=== PATIENT | male | born 1990 | race Caucasian/White ===

== ENCOUNTER → 2016-10-21 | Outpatient (CLI) | payer BC ==
[2016-10-21 11:51] LABS: DAYS OF ABSTINENCE 3; METHOD OF COLLECTION MASTURBATION; SEMEN COLOR GRAY OR GRAY-WHITE (GRY/GRYWHTE); SEMEN TIME OF COLLECTION 825; TYPE OF SPECIMEN CONTAINER STERILE CUP
[2016-10-21 11:52] LABS: SPERM VIABILITY STAIN NOT INDICATED % (>58%)
== END | disposition home or self-care (01) ==
LOC: C.LABSPEC 09:19
PROVIDERS: ATTEND Obstetrics & Gynecology
DX: Z31.41 Encounter for fertility testing (principal)

== ENCOUNTER 2022-04-14 13:45 | Inpatient (IN) ==
[2022-04-14] MEDS ORDERED: ONDANSETRON INJ 2 MG/ML 2 ML VIAL IV STA (14:22)
[2022-04-14] MEDS ORDERED: SODIUM CHLORIDE 0.9% 1000ML 1,000 ML IV ONE (16:38)
--- NOTE | 2022-04-14 16:40 | Emergency Department Note ---
Impression & Plan Alcohol withdrawal ED Provider Note HISTORY OF PRESENT ILLNESS: Patient is a 31-year-old female presenting with nausea, vomiting and tremulousness. Patient reports he is a chronic alcoholic and drinks 0.5-1 fifth of vodka a day. Reports his last drink was yesterday morning. He states that the last 24 hours, he has been very nauseous and has had multiple episodes of vomiting. He presented to the emergency department today because he felt very lightheaded like he was going to pass out and was very shaky. She had states he has been drinking this amount of vodka for years, but does report a stent after few months of sobriety months ago. Denies any history of seizures with prior alcohol withdrawal. Denies any chest pain or shortness of breath. Patient denies any other recreational drug use. Reports that he vapes. ROS: Constitutional: No fever, chills, or weakness +tremulousness Skin: No rash or diaphoresis HENT: No headaches or congestion Eyes: No vision changes Cardio: No chest pain, palpitations or leg swelling Respiratory: No cough, wheezing or shortness of breath GI: No diarrhea, constipation +nausea; +vomiting : No dysuria, polyuria MSK: No joint or back pain Neuro: No loss of sensation, confusion, focal deficits, numbness, tingling Psychiatric: No mood changes PHYSICAL EXAM: Constitutional: Patient appears in no acute distress. HENT: Head: Normocephalic and atraumatic. Eyes: EOMI, PERRL Mouth/Throat: Mucous membranes moist. Neck: Trachea midline. Neck supple. Cardiovascular: RRR, No murmurs, rubs or gallops. Intact distal pulses. Pulmonary/Chest: No respiratory distress. Breath sounds clear and equal bilaterally. No wheezes or rales. No chest wall tenderness to palpation. Abdominal: BS +. Abdomen soft, no tenderness, rebound or guarding. Back: No midline spinal tenderness, no paraspinal tenderness, no CVA tenderness. Musculoskeletal: No edema, tenderness or deformity noted. Slight tremors to bilateral hands. Skin: Warm and dry. No rash, erythema, pallor or cyanosis Psychiatric: Appropriate mood and affect for situation. Neurological: Alert and keenly responsive. CN II-XII grossly intact, moving all extremities equally and fully. MDM: - Vitals signs showed tachycardia on arrival. - Laboratory workup grossly unremarkable. - Patient quite tremulous on exam today. He is around 32 hours post last drink. - Hospitlaist Dr. Beard consulted for admission. - Patient admitted to [facility]ist service for further evaluation and management. ASSESSMENT AND PLAN: Diagnosis: alcohol withdrawal Plan: admit Past Med/Surg History Medical History (Updated 04/14/22 @ 19:19 by Janay Romano MD) Anxiety and depression Fatty liver GERD (gastroesophageal reflux disease) Surgical History (Updated 08/05/21 @ 10:01 by Margaret Reid DO) H/O umbilical hernia repair S/P wisdom tooth extraction Family History (Updated 08/05/21 @ 10:02 by Margaret Reid DO) Grandmother (Maternal) Diabetes Hypertension Father No problems noted. Mother No problems noted. Denies family history of Ovarian cancer Prostate cancer Myocardial infarction Breast cancer Colorectal cancer Social History (Updated 08/05/21 @ 10:03 by Margaret Reid DO) Smoking Status: Never smoker Tobacco Type: E-cigarettes / Vaping Age Started Using Tobacco: 16; Hx Alcohol Use: Yes Alcohol type: beer Alcohol Intake Frequency: 2-3 x/Week Alcohol Intake Frequency Comment: Weekends Hx Substance Use: No Preferred Language: Croatian Communication Ability: Effective Visual Impairment: Partially Limited Hearing Ability: Normal Or Nurse Manager Required: No Beliefs That Will Affect Care: None marital status: Current Living Situation: Spouse Current Living Situation Comment: and 2 children current occupational status: employed current occupation: [employer]- Works third shift How many Children do You have: 2 Feels Safe at Home: Yes Childhood Exposure to Second-Hand Smoke: Yes Diet Comment: does not follow a diet Dental Care, Regularly: Yes Physical Activity Frequency: 1-2 Times per Week Physical Activity Frequency Comment: Walks at work; walks at home during the summer Seatbelt Use: always Sunscreen Use: Yes Assistive Devices: None Allergies Allergies Allergy/AdvReac Type Severity Reaction Status Date / Time No Known Allergies Allergy Mild NONE Unverified 04/14/22 19:01 Home Meds Previous Rx's Medication Instructions Recorded escitalopram oxalate 10 mg tablet 10 mg PO DAILY #90 tabs 04/11/22 (Lexapro) Results & Data (ED) Vital Signs Vital Signs - 24 hr 04/14/22 14:17 04/14/22 16:09 04/14/22 18:36 Temperature 36.6 C 36.6 C Temperature Source Temporal Artery Scan Oral Pulse Rate 111 H Pulse Rate [Right Finger] 92 H 64 Respiratory Rate 20 20 23 Respiratory Effort / Characteristics Non-Labored Non-Labored Respiratory Depth Normal Normal Blood Pressure 148/87 H Blood Pressure [Right Arm] 167/92 H 136/105 H Blood Pressure Mean 107 Blood Pressure Mean [Right Arm] 117 115 Pulse Oximetry 99 94 97 Oxygen Delivery Method Room Air Room Air Room Air Sepsis Recent Fever Within 48 Hours No Sepsis New/Unexplained Change in Mental Status N/A Sepsis Action Taken by Nursing No Action Required Laboratory Data Result diagrams: 04/14/22 16:12 04/14/22 16:12 Lab Results 04/14/22 04/14/22 04/14/22 Range/Units 16:12 16:12 17:23 WBC 6.45 (4.8-10.8) K/ul RBC 4.87 (4.63-6.08) M/uL Hgb 14.9 (14.0-18.0) g/dl Hct 43.5 (40.1-51.0) % MCV 89.3 (80.0-100.0) fL MCH 30.6 (25.0-34.0) pg MCHC 34.3 (32.0-36.0) g/dL RDW Std Deviation 43.6 (36.4-46.3) fL RDW Coeff of Angela 13.3 (11.5-14.5) % Plt Count 157 (130-400) K/uL MPV 9.2 L (9.4-12.4) fL Immature Gran % (Auto) 0.2 % Neut % (Auto) 86.9 % Lymph % (Auto) 5.0 % Norton % (Auto) 6.7 % Eos % (Auto) 0.0 % Baso % (Auto) 1.2 % Neut # (Auto) 5.61 (1.4-6.5) K/uL Lymph # (Auto) 0.32 L (1.2-3.4) K/uL Norton # (Auto) 0.43 (0.24-0.82) K/uL Eos # (Auto) 0.00 (0-0.50) K/uL Baso # (Auto) 0.08 (0-0.2) K/uL Immature Gran # (Auto) 0.01 (0.00-0.02) K/uL Sodium 138 (136-145) mmol/L Potassium 4.2 (3.5-5.1) mmol/L Chloride 95 L (98-107) mmol/L Carbon Dioxide 24 (21-32) mmol/L Anion Gap 19 H (3-11) BUN 11 (6-23) mg/dl Creatinine 0.85 (0.6-1.4) mg/dl Est Cr Clr Drug Dosing 124.3 ml/min Est GFR ( Amer) 134.6 ml/min Est GFR (Non-Af Amer) 116.1 ml/min BUN/Creatinine Ratio 12.9 (10-20) Glucose 120 H (70-99(Fasting)) mg/dl Calcium 9.8 (8.5-10.1) mg/dl Total Bilirubin 1.3 H (0.2-1.0) mg/dl AST 219 H (13-39) U/L ALT 168 H (7-52) U/L Alkaline Phosphatase 78 (34-104) U/L Total Protein 9.3 H (6.0-8.3) gm/dl Albumin 5.3 H (3.4-5.0) gm/dl Globulin 4.0 (2.5-4.0) gm/dl Albumin/Globulin Ratio 1.3 (0.9-2) Ethyl Alcohol mg/dL < 10.0 (<10.0) mg/dl Administered Medications Discontinued Medications Sodium Chloride (Nss 1000ml) 1,000 mls @ 999 mls/hr IV .Q1H1M ONE Stop: 04/14/22 17:38 Last Infusion: 04/14/22 18:01 Dose: 0 mls/hr Documented By: Admin: 04/14/22 16:57 Dose: 999 mls/hr Documented By: KATIANA Lorazepam (Lorazepam 0.5 Mg Tab) 0.5 mg PO NOW STA Stop: 04/14/22 18:09 Last Admin: 04/14/22 18:13 Dose: 0.5 mg Documented By: KATIANA Ondansetron HCl (Ondansetron Inj 2 Mg/Ml 2 Ml Vial) 4 mg IV NOW STA Stop: 04/14/22 14:23 Last Admin: 04/14/22 16:07 Dose: 4 mg Documented By: NRB Discharge Plan Visit Data Chief Complaint: Alcohol Withdrawal Stated Complaint: MEDICINE WITHDRAWL ED Provider: Janay Romano Discharge Problem: Alcohol withdrawal Patient Disposition: Admitted As Inpatient Forms Stand Alone Forms: [facility], Suicide Prevention Resources Prescriptions Prescriptions: No Action escitalopram oxalate [Lexapro] 10 mg tablet 10 mg PO DAILY Qty: 90 3RF Referrals Referrals: Margaret Reid DO [Primary Care Provider] -
[2022-04-14 16:44] LABS: Basophils # (auto) 0.08 K/uL (0-0.2); Basophils % (auto) 1.2 %; Hematocrit (blood only) 43.5 % (40.1-51.0); Hemoglobin 14.9 g/dl (14.0-18.0); Immature Granulocytes # (auto) 0.01 K/uL (0.00-0.02); Immature Granulocytes % (auto) 0.2 %; Lymphocytes # (auto) 0.32 K/uL (1.2-3.4); Mean Corpuscular Hemoglobin 30.6 pg (25.0-34.0); Mean Corpuscular Hgb Conc 34.3 g/dL (32.0-36.0); Mean Corpuscular Volume 89.3 fL (80.0-100.0); Mean Platelet Volume 9.2 fL (9.4-12.4); Monocytes # (auto) 0.43 K/uL (0.24-0.82); Monocytes % (auto) 6.7 %; Neutrophils # (auto) 5.61 K/uL (1.4-6.5); Neutrophils % (auto) 86.9 %; Platelet Count 157 K/uL (130-400); RDW Coefficient of Variation 13.3 % (11.5-14.5); RDW Standard Deviation 43.6 fL (36.4-46.3); Red Blood Count 4.87 M/uL (4.63-6.08); White Blood Count 6.45 K/ul (4.8-10.8)
[2022-04-14 17:36] LABS: Albumin Globulin Ratio 1.3 (0.9-2); Albumin Level 5.3 gm/dl (3.4-5.0); BUN Creatinine Ratio 12.9 (10-20); Bilirubin,Total 1.3 mg/dl (0.2-1.0); Calcium 9.8 mg/dl (8.5-10.1); Creatinine Clr Calc Pharmacy 124.3 ml/min; Est GFR (African American) 134.6 ml/min; Est GFR (Non-African American) 116.1 ml/min; Potassium 4.2 mmol/L (3.5-5.1); Total Protein 9.3 gm/dl (6.0-8.3)
[2022-04-14] MEDS ORDERED: LORazepam 0.5 MG TAB PO STA (18:08)
--- NOTE | 2022-04-14 20:15 | History & Physical Report ---
Date of Service April 14, 2022 Assessment & Plan (1) Alcohol withdrawal: Plan: Alcohol withdrawal/alcoholism- Last intake of 1 pint of vodka, his usual daily intake, was 1 day ago. Admit to medical telemetry AWSS protocol Start gabapentin seizure protocol Start lorazepam escalating dose oral protocol Thiamine 100 mg p.o. every morning Folic acid 1 mg p.o. every morning NSS + KCl 20 mEq at 100 mils per hour Zofran 4 mg IV every 6 hours as needed Famotidine 20 mg IV every 12 hours (2) Alcoholism: (3) Anxiety and depression: Plan: Resume Lexapro 10 mg daily, with first dose this evening (4) Fatty liver: Plan: Total bilirubin 1.3, AST 219, ALT 168 Follow serially (5) GERD (gastroesophageal reflux disease): Plan: Famotidine IV as noted above History of Present Illness Chief Complaint: The patient presents to the emergency department with concerns regarding alcohol withdrawal as he has been trying to quit his alcohol dependency. His last alcohol was 24 hours ago, and he is noting worsening tremors. He reports drinking half 1/5-5th of vodka daily for the past several years. He has no history of alcohol withdrawal seizures or DTs. He denies any intravenous drug use, but he does vape. Primary Care Provider: Margaret Reid DO The patient is a 31-year-old male with a past medical history of alcoholism, anxiety and depression, fatty liver, and GERD.He presents to the emergency department with his present, with concerns regarding alcohol withdrawal.He has been without his Lexapro 10 mg daily prescription for a few weeks, but does report having picked the prescription up yesterday, and is ready to start it again. Allergies Allergy/AdvReac Type Severity Reaction Status Date / Time No Known Allergies Allergy Mild NONE Unverified 04/14/22 19:01 Home Medications Medication Instructions Recorded Confirmed Type escitalopram oxalate 10 mg tablet 10 mg PO DAILY #90 tabs 04/11/22 04/14/22 Rx (Lexapro) Past Med/Surg History Medical History (Updated 04/14/22 @ 19:19 by Janay Romano MD) Anxiety and depression Fatty liver GERD (gastroesophageal reflux disease) Surgical History (Updated 08/05/21 @ 10:01 by Margaret Reid DO) H/O umbilical hernia repair S/P wisdom tooth extraction Family History (Updated 08/05/21 @ 10:02 by Margaret Reid DO) Grandmother (Maternal) Diabetes Hypertension Father No problems noted. Mother No problems noted. Denies family history of Ovarian cancer Prostate cancer Myocardial infarction Breast cancer Colorectal cancer Social History (Updated 08/05/21 @ 10:03 by Margaret Reid DO) Smoking Status: Never smoker Tobacco Type: E-cigarettes / Vaping Age Started Using Tobacco: 16; Second Hand Exposure: No; Do You Dip or Chew Tobacco: Yes; Tobacco Cessation Education Requested by Patient: Yes Hx Alcohol Use: Yes Alcohol type: hard liquor Alcohol Intake Frequency: 2-3 x/Week Alcohol Intake Frequency Comment: Weekends Hx Substance Use: No Preferred Language: Czech Communication Ability: Effective Visual Impairment: Partially Limited Hearing Ability: Normal Registered Nurse First Assistant Required: No Beliefs That Will Affect Care: None marital status: Current Living Situation: Spouse and Family Current Living Situation Comment: and 2 children current occupational status: employed current occupation: [employer]- Works third shift How many Children do You have: 2 Other Information That Helps Us Care for You: Yes (recent wt loss, over last month.) Feels Safe at Home: Yes Safety Concerns: Feels Safe At This Time Childhood Exposure to Second-Hand Smoke: Yes Diet Comment: does not follow a diet Dental Care, Regularly: Yes Physical Activity Frequency: 1-2 Times per Week Physical Activity Frequency Comment: Walks at work; walks at home during the summer Seatbelt Use: always Sunscreen Use: Yes Assistive Devices: Glasses Review of Systems Review of Systems: The patient denies chest pain, palpitations, shortness of breath, dyspnea on exertion, cough, lower extremity swelling, sore throat, fevers, chills, sweats, weight change, fatigue, nausea, vomiting, diarrhea , constipation, blood in urine or stool, dysuria, urinary frequency or urgency, lightheadedness, dizziness, headache, memory loss, loss of consciousness, rash, abnormal bruising or bleeding, imbalance, focal or generalized weakness, numbness or tingling in arms or legs, generalized arthralgias or myalgias, back or neck pain, or night sweats. The review of systems is otherwise negative other than for that already noted above, and at least 10 systems have been reviewed. Physical Exam Physical Exam: The patient is awake, alert and oriented 3, well developed and well nourished, normocephalic and atraumatic, lying in bed and in no acute distress. HEENT--PERRL, EOMI, mucous membranes and oropharynx dry. Neck--supple. No JVD. No bruits. Thyroid normal, trachea midline, no adenopathy. Heart--normal S1 and S2. No murmurs, rubs or gallops. Lungs--clear bilaterally, no respiratory distress, no accessory muscle use. Abdomen--normal bowel sounds and soft. Nontender. Nondistended, no hernias or masses, no organomegaly. Extremities--no cyanosis or clubbing. No edema. There are good distal pulses b/l. Dermatologic--normal skin turgor, normal color, no abnormal lymph nodes, no rash. Neurologic--cranial nerves II through XII grossly intact. Patient does have a tremor bilateral upper extremities Rheumatologic--normal range of motion. Psychiatric--appears mildly anxious, but is cooperative Results & Data Results & Data ([facility]) Vital Signs (Past 12 Hours) Vital Signs Temp Pulse Pulse Resp BP BP Pulse Ox 04/14/22 19:25 60 21 135/86 99 04/14/22 18:36 36.6 C 64 23 136/105 H 97 04/14/22 16:09 92 H 20 167/92 H 94 04/14/22 14:17 36.6 C 111 H 20 148/87 H 99 O2 Del Method 04/14/22 19:25 Room Air 04/14/22 18:36 Room Air 04/14/22 16:09 Room Air 04/14/22 14:17 Room Air Laboratory Results Laboratory Results WBC 6.45 K/ul (4.8-10.8) 04/14/22 16:12 RBC 4.87 M/uL (4.63-6.08) 04/14/22 16:12 Hgb 14.9 g/dl (14.0-18.0) 04/14/22 16:12 Hct 43.5 % (40.1-51.0) 04/14/22 16:12 MCV 89.3 fL (80.0-100.0) 04/14/22 16:12 MCH 30.6 pg (25.0-34.0) 04/14/22 16:12 MCHC 34.3 g/dL (32.0-36.0) 04/14/22 16:12 RDW Std Deviation 43.6 fL (36.4-46.3) 04/14/22 16:12 RDW Coeff of Angela 13.3 % (11.5-14.5) 04/14/22 16:12 Plt Count 157 K/uL (130-400) 04/14/22 16:12 MPV 9.2 fL (9.4-12.4) L 04/14/22 16:12 Immature Gran % (Auto) 0.2 % 04/14/22 16:12 Neut % (Auto) 86.9 % 04/14/22 16:12 Lymph % (Auto) 5.0 % 04/14/22 16:12 [place] % (Auto) 6.7 % 04/14/22 16:12 Eos % (Auto) 0.0 % 04/14/22 16:12 Baso % (Auto) 1.2 % 04/14/22 16:12 Neut # (Auto) 5.61 K/uL (1.4-6.5) 04/14/22 16:12 Lymph # (Auto) 0.32 K/uL (1.2-3.4) L 04/14/22 16:12 [place] # (Auto) 0.43 K/uL (0.24-0.82) 04/14/22 16:12 Eos # (Auto) 0.00 K/uL (0-0.50) 04/14/22 16:12 Baso # (Auto) 0.08 K/uL (0-0.2) 04/14/22 16:12 Immature Gran # (Auto) 0.01 K/uL (0.00-0.02) 04/14/22 16:12 Sodium 138 mmol/L (136-145) 04/14/22 16:12 Potassium 4.2 mmol/L (3.5-5.1) 04/14/22 16:12 Chloride 95 mmol/L (98-107) L 04/14/22 16:12 Carbon Dioxide 24 mmol/L (21-32) 04/14/22 16:12 Anion Gap 19 (3-11) H 04/14/22 16:12 BUN 11 mg/dl (6-23) 04/14/22 16:12 Creatinine 0.85 mg/dl (0.6-1.4) 04/14/22 16:12 Est Cr Clr Drug Dosing 124.3 ml/min 04/14/22 16:12 Est GFR ( Amer) 134.6 ml/min 04/14/22 16:12 Est GFR (Non-Af Amer) 116.1 ml/min 04/14/22 16:12 BUN/Creatinine Ratio 12.9 (10-20) 04/14/22 16:12 Glucose 120 mg/dl (70-99(Fasting)) H 04/14/22 16:12 Calcium 9.8 mg/dl (8.5-10.1) 04/14/22 16:12 Total Bilirubin 1.3 mg/dl (0.2-1.0) H 04/14/22 16:12 AST 219 U/L (13-39) H 04/14/22 16:12 ALT 168 U/L (7-52) H 04/14/22 16:12 Alkaline Phosphatase 78 U/L (34-104) 04/14/22 16:12 Total Protein 9.3 gm/dl (6.0-8.3) H 04/14/22 16:12 Albumin 5.3 gm/dl (3.4-5.0) H 04/14/22 16:12 Globulin 4.0 gm/dl (2.5-4.0) 04/14/22 16:12 Albumin/Globulin Ratio 1.3 (0.9-2) 04/14/22 16:12 Ethyl Alcohol mg/dL < 10.0 mg/dl (<10.0) 04/14/22 17:23 SARS-CoV-2, RNA, NAAT NEGATIVE (NEGATIVE) 04/14/22 19:23 Code Status & VTE Plan Code Status full code VTE Prophylaxis Plan VTE Prophylaxis will be ordered: Yes PG Care Time/CCT Total # of Minutes Spent Total Time Spent with Patient: Total time spent is greater than 50% in coordination of care (as documented) at patient's floor/unit and/or counseling patient: Coding Level of Care Code 70107 Initial Inpt Care Lvl 3 Diagnoses Alcohol withdrawal F10.939 Alcoholism F10.20 Anxiety and depression F41.9; F32.A Fatty liver K76.0 GERD (gastroesophageal reflux disease) K21.9
[2022-04-14] MEDS ORDERED: ACETAMINOPHEN 325 MG TAB PO PRN (22:06)
[2022-04-14] MEDS ORDERED: ESCITALOPRAM OXALATE 10 MG TAB PO ONE (22:06)
[2022-04-14] MEDS ORDERED: LORazepam 1 MG TAB PO PRN (22:06)
[2022-04-14] MEDS ORDERED: Ativan PO Alcohol Withdrawal--Active Protocol PO PRN (22:06)
[2022-04-14] MEDS ORDERED: GABAPENTIN 600 MG TAB PO ONE (22:06)
[2022-04-14] MEDS ORDERED: ONDANSETRON INJ 2 MG/ML 2 ML VIAL IV PRN (22:06)
[2022-04-14] MEDS ORDERED: GABAPENTIN 1200MG ALCOHOL WITHDRAWAL LOAD PO STA (22:06)
[2022-04-14] MEDS: THIAMINE HCL 100 MG TAB PO SCH (22:30)
[2022-04-14] MEDS: FOLIC ACID 1 MG TAB PO SCH (22:30)
[2022-04-14] MEDS: NSS + 20MEQ KCL 20 MEQ/1,000 ML BAG IV SCH (23:02)
[2022-04-14] MEDS: LORazepam 1 MG TAB PO PRN (23:03)
[2022-04-15] MEDS: GABAPENTIN 600 MG TAB PO SCH ×3 (06:06→21:35)
--- NOTE | 2022-04-15 06:08 | Electrocardiogram Report ---
Test Reason : Blood Pressure : / mmHG Vent. Rate : 089 BPM Atrial Rate : 089 BPM P-R Int : 148 ms QRS Dur : 080 ms QT Int : 348 ms P-R-T Axes : 060 035 047 degrees QTc Int : 423 ms Normal sinus rhythm Normal ECG When compared with ECG of 06-JUL-2021 13:16, No significant change was found Confirmed by Rito Serna ([id number]) on 04/15/2022 6:08:22 AM Referred By: ED Confirmed By:Rito Serna
[2022-04-15 08:11] LABS: Albumin Globulin Ratio 1.4 (0.9-2); Albumin Level 4.8 gm/dl (3.4-5.0); BUN Creatinine Ratio 11.7 (10-20); Bilirubin,Total 1.6 mg/dl (0.2-1.0); Calcium 9.2 mg/dl (8.5-10.1); Creatinine Clr Calc Pharmacy 137.9 ml/min; Est GFR (African American) 140.1 ml/min; Est GFR (Non-African American) 120.9 ml/min; Globulin 3.5 gm/dl (2.5-4.0); Magnesium 1.7 mg/dl (1.7-2.4); Potassium 4.1 mmol/L (3.5-5.1); Total Protein 8.3 gm/dl (6.0-8.3)
[2022-04-15] MEDS: LORazepam 1 MG TAB PO PRN ×2 (08:15→16:10)
[2022-04-15 08:17] LABS: Basophils # (auto) 0.08 K/uL (0-0.2); Basophils % (auto) 1.7 %; Eosinophils # (auto) 0.03 K/uL (0-0.50); Eosinophils % (auto) 0.6 %; Hematocrit (blood only) 41.5 % (40.1-51.0); Hemoglobin 14.2 g/dl (14.0-18.0); Immature Granulocytes # (auto) 0.03 K/uL (0.00-0.02); Immature Granulocytes % (auto) 0.6 %; Lymphocytes # (auto) 0.83 K/uL (1.2-3.4); Lymphocytes % (auto) 17.3 %; Mean Corpuscular Hemoglobin 30.8 pg (25.0-34.0); Mean Corpuscular Hgb Conc 34.2 g/dL (32.0-36.0); Mean Platelet Volume 9.2 fL (9.4-12.4); Monocytes % (auto) 12.5 %; Neutrophils # (auto) 3.22 K/uL (1.4-6.5); Neutrophils % (auto) 67.3 %; Platelet Count 129 K/uL (130-400); Platelet Estimate Decreased (Normal); RDW Coefficient of Variation 13.1 % (11.5-14.5); RDW Standard Deviation 43.3 fL (36.4-46.3); Red Blood Count 4.61 M/uL (4.63-6.08); White Blood Count 4.79 K/ul (4.8-10.8)
[2022-04-15] MEDS: FOLIC ACID 1 MG TAB PO SCH (08:31)
[2022-04-15] MEDS: THIAMINE HCL 100 MG TAB PO SCH (08:31)
[2022-04-15] MEDS: NSS + 20MEQ KCL 20 MEQ/1,000 ML BAG IV SCH ×2 (10:23→21:15)
--- NOTE | 2022-04-15 12:29 | Hospitalist Progress Note ---
Date of Service April 15, 2022 Assessment & Plan (1) Alcohol withdrawal: Plan: Last intake of 1 pint of vodka on Thursday. - AWSS protocol with gabapentin & lorazepam -> Stable/improving today, but still requiring IV Ativan regularly overnight on top of oral gabapentin. (2) Alcoholism: (3) Anxiety and depression: Plan: - Continue Lexapro 10 mg daily (4) Fatty liver: Plan: Total bilirubin 1.6, AST/ALT improving. - Follow serially - Will get PT for Maddrey's score, but suspect no role for steroids. (5) GERD (gastroesophageal reflux disease): Plan: - Famotidine IV Plan DVT ppx: SCDs - Low DVT risk per admission calculator. Patient up and walking around room frequently. Admission and Anticipated Discharge Date Admission Date: April 14, 2022 Subjective Doing better today. Less withdrawal. No major issues otherwise. Some mild anxiety. Reports no fevers/chills, chest pain, shortness of breath, abdominal pain, nausea, or vomiting. Physical Exam Constitutional: WD/WN, vitals as above Eyes: EOM intact bilaterally; no conjunctival abnormality ENMT: external ear and nose normal, oropharynx normal Neck: trachea midline, no thyromegaly normal visual inspection Respiratory: normal respiratory effort, lungs clear to auscultation no respiratory distress Cardiovascular: RRR, no murmur, no edema Gastrointestinal (Abdomen): Inspection/Auscultation: abdomen normal to inspection; abdomen not distended Musculoskeletal: no cyanosis or clubbing, extremities motor strength 5/5 Skin: no rashes, warm and dry Neurologic: moves all extremities and awake Mild tremor, no tongue fasciculations Psychiatric: Orientation: alert, oriented to person and cooperative Results & Data Results & Data ([facility]) Vital Signs (Past 12 Hours) Vital Signs Temp Pulse Pulse Resp BP Pulse Ox O2 Del Method 04/15/22 11:33 36.9 C 95 H 18 152/99 H 100 Room Air 04/15/22 08:41 57 L 04/15/22 07:20 36.9 C 80 16 150/103 H 95 Room Air 04/15/22 02:58 37.1 C 79 18 144/78 H 98 Room Air PG Care Time/CCT Total # of Minutes Spent Total Time Spent with Patient: Total time spent is greater than 50% in coordination of care (as documented) at patient's floor/unit and/or counseling patient: Coding Level of Care Code 23259 Subseq Hosp Care Lvl 3 Diagnoses Alcohol withdrawal F10.939 Alcoholism F10.20 Anxiety and depression F41.9; F32.A Fatty liver K76.0 GERD (gastroesophageal reflux disease) K21.9
[2022-04-16] MEDS: LORazepam 1 MG TAB PO PRN ×2 (02:31→04:08)
--- NOTE | 2022-04-16 04:10 | Communication Note ---
Date of Service: April 16, 2022 messaged about agitation and hallucinations. Patient was given 2mg PO ativan per protocol for AWSS 9; w/ improvement in agitation. will follow so. patient asked to leave AMA at 5AM. Actively hallucinating. Thought he was being monitored in hallway. Was able to reorient somewhat. Staying for now. AWSS 9. Giving 2mg IV ativan. attending ordered IM zyprexa for continued hallucinations
[2022-04-16] MEDS ORDERED: LORazepam 2 MG in SYRINGE 0 ML IV STA ×2 (04:11→05:28)
[2022-04-16] MEDS: GABAPENTIN 600 MG TAB PO SCH (05:42)
[2022-04-16] MEDS ORDERED: OLANZapine 10 MG/2.1 ML SDV IM STA (06:17)
[2022-04-16] MEDS: NSS + 20MEQ KCL 20 MEQ/1,000 ML BAG IV SCH (06:58)
[2022-04-16] MEDS: FOLIC ACID 1 MG TAB PO SCH (08:11)
[2022-04-16] MEDS: THIAMINE HCL 100 MG TAB PO SCH (08:11)
[2022-04-16] MEDS ORDERED: PHENobarbital sodium 65 MG/ML VIAL IV STA (08:38)
[2022-04-16] MEDS ORDERED: PHENobarbital sodium 130 MG/ML VIAL IV PRN ×2 (08:52→16:11)
--- NOTE | 2022-04-16 09:19 | Communication Note ---
Date of Service: April 16, 2022 Consult received, initial chart reviewed, liaison attempted to round but patient is in process of being transferred for Percedex drip. Patient has some history of depression, has been non compliant with Lexapro on an outpatient basis. Drinking 1/2 or full fifth of vodka daily. Exhibiting some signs of withdrawal delirium overnight, such as restlessness, irritability, possible jaimes, perseverating on IV pump and then paranoia that he is being monitored through it. Is on AWSS protocol with Neurontin, now phenobarb. Recieved Ativan for scoring this am and then Zyrpexa IM soon after by hospitalist service. will reattempt consult as mental status improves, I would not restart Lexapro under current circumstances given active withdrawal. He previously indicated a willingness for outpatient rehab per chart. Treatment of choice for psychotic symptoms during ETOH withdrawal is more benzos reserving IM Zyprexa or Haldol IV (if on telemetry) for breakthrough combativeness.
[2022-04-16] MEDS ORDERED: LORazepam 1 MG/1 ML SYR IM STA (09:37)
[2022-04-16] MEDS ORDERED: PHENobarbital sodium 65 MG/ML VIAL IM STA (09:39)
[2022-04-16] MEDS ORDERED: KETAMINE HCL INJ 50 MG/ML 10 ML VIAL ONE (09:40)
[2022-04-16] MEDS ORDERED: LORazepam 1 MG/1 ML SYR IM ONE (09:45)
[2022-04-16] MEDS ORDERED: OLANZapine 10 MG/2.1 ML SDV IM PRN (10:00)
[2022-04-16] MEDS ORDERED: KETAMINE HCL INJ 50 MG/ML 10 ML VIAL IM ONE (10:15)
[2022-04-16 11:23] LABS: Hematocrit (blood only) 37.3 % (40.1-51.0); Hemoglobin 13.2 g/dl (14.0-18.0); White Blood Count 4.13 K/ul (4.8-10.8)
[2022-04-16 11:30] LABS: Prothrombin Time 10.5 Seconds (9.0-12.0)
[2022-04-16 11:47] LABS: Basophils # (auto) 0.07 K/uL (0-0.2); Basophils % (auto) 1.7 %; Eosinophils # (auto) 0.06 K/uL (0-0.50); Eosinophils % (auto) 1.5 %; Immature Granulocytes # (auto) 0.01 K/uL (0.00-0.02); Immature Granulocytes % (auto) 0.2 %; Lymphocytes # (auto) 0.66 K/uL (1.2-3.4); Mean Corpuscular Hgb Conc 35.4 g/dL (32.0-36.0); Mean Corpuscular Volume 87.6 fL (80.0-100.0); Mean Platelet Volume 10.2 fL (9.4-12.4); Monocytes # (auto) 0.31 K/uL (0.24-0.82); Monocytes % (auto) 7.5 %; Neutrophils # (auto) 3.02 K/uL (1.4-6.5); Neutrophils % (auto) 73.1 %; Platelet Count 108 K/uL (130-400); Platelet Estimate Decreased (Normal); RDW Coefficient of Variation 12.5 % (11.5-14.5); Red Blood Count 4.26 M/uL (4.63-6.08)
[2022-04-16 11:56] LABS: Alanine Aminotransferase 156 U/L (7-52); Albumin Globulin Ratio 1.3 (0.9-2); Albumin Level 4.2 gm/dl (3.4-5.0); Alkaline Phosphatase 64 U/L (34-104); Anion Gap 9 (3-11); Aspartate Aminotransferase 204 U/L (13-39); BUN Creatinine Ratio 10.5 (10-20); Bilirubin,Total 1.2 mg/dl (0.2-1.0); Blood Urea Nitrogen 6 mg/dl (6-23); Calcium 9.2 mg/dl (8.5-10.1); Carbon Dioxide 25 mmol/L (21-32); Chloride 105 mmol/L (98-107); Creatinine Clr Calc Pharmacy 186.2 ml/min; Est GFR (African American) > 150.0 ml/min; Est GFR (Non-African American) 136.8 ml/min; Globulin 3.2 gm/dl (2.5-4.0); Glucose 100 mg/dl (70-99(Fasting)); Magnesium 1.8 mg/dl (1.7-2.4); Potassium 3.3 mmol/L (3.5-5.1); Sodium 139 mmol/L (136-145); Total Protein 7.4 gm/dl (6.0-8.3)
[2022-04-16] MEDS: PHENobarbital sodium 65 MG/ML VIAL IV SCH ×2 (12:19→15:33)
--- NOTE | 2022-04-16 14:12 | Hospitalist Progress Note ---
Date of Service April 16, 2022 Assessment & Plan (1) Alcohol withdrawal: Plan: Last intake of 1 pint of vodka on Thursday. - AWSS protocol with gabapentin & lorazepam -> Dramatically worse today. Paranoid and hallucinating. Nearly violent with staff and family. Transferred to ICU for phenobarbital and closer monitoring. (2) Alcoholism: (3) Anxiety and depression: Plan: - Continue Lexapro 10 mg daily when able (4) Fatty liver: Plan: Total bilirubin 1.6, AST/ALT improving. Normal PT. No role for steroids. - Follow serially (5) GERD (gastroesophageal reflux disease): Plan: - Famotidine IV Plan DVT ppx: SCDs - Low DVT risk per admission calculator. Patient up and walking around room frequently. Admission and Anticipated Discharge Date Admission Date: April 14, 2022 Subjective AAOx1. Says he's tired of "this," but cannot really describe what "it" is. Thinks we are in his house in [place] in 2018. Physical Exam Constitutional: + acute distress and + intoxicated appearing Eyes: EOM intact bilaterally; no conjunctival abnormality ENMT: external ear and nose normal, oropharynx normal Neck: trachea midline, no thyromegaly normal visual inspection Respiratory: no respiratory distress Cardiovascular: RRR, no murmur, no edema Gastrointestinal (Abdomen): Inspection/Auscultation: abdomen normal to inspection; abdomen not distended Musculoskeletal: no cyanosis or clubbing, extremities motor strength 5/5 Skin: no rashes, warm and dry Neurologic: moves all extremities and awake Psychiatric: Orientation: alert and oriented to person; + not oriented to place, + not oriented to time and + uncooperative Affect: + anxious affect and + angry affect Results & Data Results & Data ([facility]) Vital Signs (Past 12 Hours) Vital Signs Temp Pulse Resp BP Pulse Ox O2 Del Method O2 Flow Rate 04/16/22 10:00 Room Air, Nasal Cannula 2 04/16/22 08:08 36.9 C 18 143/80 H 98 Room Air 04/16/22 04:02 37 C 78 16 147/105 H 04/16/22 02:24 37.0 C 66 18 154/62 H 95 Room Air PG Care Time/CCT Total # of Minutes Spent Total Time Spent with Patient: Total time spent is greater than 50% in coordination of care (as documented) at patient's floor/unit and/or counseling patient: Coding Level of Care Code 87895 Subseq Hosp Care Lvl 3 Diagnoses Alcohol withdrawal F10.939 Alcoholism F10.20 Anxiety and depression F41.9; F32.A Fatty liver K76.0 GERD (gastroesophageal reflux disease) K21.9
[2022-04-16] MEDS: PHENobarbital sodium 65 MG/ML VIAL IV STA ×2 (14:13→14:29)
--- NOTE | 2022-04-16 14:32 | Critical Care Consultation ---
Date of Consultation April 16, 2022 Assessment & Plan (1) Delirium tremens: Reason Critically Ill: 31-year-old male acute delirium tremens PLAN: Neuro: Delirium tremens -Intravenous phenobarbital loadin mg/kg over 6 hours -65 mg IV phenobarbital as needed severe agitation -Start oral phenobarb tomorrow Depression and anxiety -Most likely worsened by alcohol dependency CV: Tachycardia -Secondary to agitated delirium GI/Nutrition: Transaminitis -Likely alcoholic hepatitis -Coagulation profile normal -Acute hepatitis panel to rule out additional etiologies Heme: Mild anemia -Most likely consistent with bone marrow suppression secondary to alcohol DVT prophylaxis: Lovenox 30 mg daily Endocrine: ICU hyperglycemia protocol check TSH Vascular access: PIVs Code Status: Full code Disposition: ICU (2) Alcoholism: (3) Anxiety and depression: (4) Fatty liver: Supervising Physician Co-Signing Physician Notes I have personally spent 50 minutes of critical care time in the direct management of this patient. This is a life/limb threatening event. This includes time spent evaluating patient, direct bedside care, chart review, placing orders, interpretation of diagnostic studies, discussion with consultants, patient, and/or family members regarding treatment decisions, as well as other required patient management activities. This time is exclusive of all separately billable procedures, and teaching time and separate from and in addition to any other critical care service time. History of Present Illness Reason for Consultation: Agitated delirium secondary to acute alcohol withdrawal Requesting Physician: Hunter Paul MD Attending Physician: Hunter Paul MD History of Present Illness Patient is a 31-year-old male who has a history of alcohol dependency had been recently decreasing his alcohol use. He was initially seen in the emergency department on April 14. He was started on CIWA protocol and symptom triggered management. He had been doing well in the previous 24 hours however overnight he had increasing agitation and acute delirium. This morning during my evaluation he was only oriented to self actively hallucinating. Patient became combative and was a danger to self and staff required physical restraints and intravenous as well as intramuscular medications as well as violent restraints. Discussed with the patient's , she feels he has been underreporting his alcohol use. No known history of alcohol withdrawal previously. Allergies Allergy/AdvReac Type Severity Reaction Status Date / Time No Known Allergies Allergy Mild NONE Unverified 04/14/22 19:01 Home Medications Medication Instructions Recorded Confirmed Type escitalopram oxalate 10 mg tablet 10 mg PO DAILY #90 tabs 04/11/22 04/14/22 Rx (Lexapro) Patient History Medical History Anxiety and depression Fatty liver GERD (gastroesophageal reflux disease) Surgical History H/O umbilical hernia repair S/P wisdom tooth extraction Family History Grandmother (Maternal) Diabetes Hypertension Father No problems noted. Mother No problems noted. Denies family history of Ovarian cancer Prostate cancer Myocardial infarction Breast cancer Colorectal cancer Social History Smoking Status: Never smoker Tobacco Type: E-cigarettes / Vaping Age Started Using Tobacco: 16; Second Hand Exposure: No; Do You Dip or Chew Tobacco: Yes; Tobacco Cessation Education Requested by Patient: Yes Hx Alcohol Use: Yes Alcohol type: hard liquor Alcohol Intake Frequency: 2-3 x/Week Alcohol Intake Frequency Comment: Weekends Hx Substance Use: No Preferred Language: Romansh Communication Ability: Effective Visual Impairment: Partially Limited Hearing Ability: Normal Beverage Distiller Required: No Beliefs That Will Affect Care: None marital status: Current Living Situation: Spouse and Family Current Living Situation Comment: and 2 children current occupational status: employed current occupation: [employer]- Works third shift How many Children do You have: 2 Other Information That Helps Us Care for You: Yes (recent wt loss, over last month.) Feels Safe at Home: Yes Safety Concerns: Feels Safe At This Time Childhood Exposure to Second-Hand Smoke: Yes Diet Comment: does not follow a diet Dental Care, Regularly: Yes Physical Activity Frequency: 1-2 Times per Week Physical Activity Frequency Comment: Walks at work; walks at home during the summer Seatbelt Use: always Sunscreen Use: Yes Assistive Devices: None Review of Systems Review of Systems: Unobtainable due to reduced consciousness Physical Exam Physical Exam: General: Oriented to self only, agitated and tremulous, Skin: Warm, mild diaphoresis Head: Atraumatic Ears, nose, mouth and throat: airway patent Cardiovascular: Tachycardia Respiratory: no respiratory distress Gastrointestinal: Non distended Musculoskeletal: No deformity Results & Data Results & Data ([facility]) Vital Signs (Past 12 Hours) Vital Signs Temp Pulse Resp BP Pulse Ox O2 Del Method O2 Flow Rate 04/16/22 10:00 Room Air, Nasal Cannula 2 04/16/22 08:08 36.9 C 18 143/80 H 98 Room Air 04/16/22 04:02 37 C 78 16 147/105 H Critical Care Results & Data Vital Signs (Past 12 Hours) Vital Signs Temp Pulse Resp BP Pulse Ox O2 Del Method O2 Flow Rate 04/16/22 10:00 Room Air, Nasal Cannula 2 04/16/22 08:08 36.9 C 18 143/80 H 98 Room Air 04/16/22 04:02 37 C 78 16 147/105 H Lab & Micro Results (Past 24 Hours) RBC 4.26 M/uL (4.63-6.08) L 04/16/22 WBC 4.13 K/ul (4.8-10.8) L 04/16/22 Hgb 13.2 g/dl (14.0-18.0) L 04/16/22 Hct 37.3 % (40.1-51.0) L 04/16/22 MCV 87.6 fL (80.0-100.0) 04/16/22 MCH 31.0 pg (25.0-34.0) 04/16/22 MCHC 35.4 g/dL (32.0-36.0) 04/16/22 RDW Standard Deviation 40.0 fL (36.4-46.3) 04/16/22 RDW Coefficient of Variation 12.5 % (11.5-14.5) 04/16/22 Plt Count 108 K/uL (130-400) L 04/16/22 MPV 10.2 fL (9.4-12.4) 04/16/22 Neutrophils (%) (Auto) 73.1 % 04/16/22 Lymphocytes (%) (Auto) 16.0 % 04/16/22 Monocytes # (Auto) 0.31 K/uL (0.24-0.82) 04/16/22 Eosinophils # (Auto) 0.06 K/uL (0-0.50) 04/16/22 Immature Granulocyte % (Auto) 0.2 % 04/16/22 Neutrophils # (Auto) 3.02 K/uL (1.4-6.5) 04/16/22 Lymphocytes # (Auto) 0.66 K/uL (1.2-3.4) L 04/16/22 Monocytes # (Auto) 0.31 K/uL (0.24-0.82) 04/16/22 Eosinophils # (Auto) 0.06 K/uL (0-0.50) 04/16/22 Basophils # (Auto) 0.07 K/uL (0-0.2) 04/16/22 Immature Granulocyte # (Auto) 0.01 K/uL (0.00-0.02) 2 Na 139 mmol/L (136-145) 04/16/22 K 3.3 mmol/L (3.5-5.1) L 04/16/22 Cl 105 mmol/L (98-107) 04/16/22 CO2 25 mmol/L (21-32) 04/16/22 Anion Gap 9 (3-11) 04/16/22 BUN 6 mg/dl (6-23) 04/16/22 Creatinine 0.57 mg/dl (0.6-1.4) L 04/16/22 Estimated GFR ( Amer) > 150.0 ml/min 04/16/22 Estimated GFR (Non-Af Amer) 136.8 ml/min 04/16/22 BUN/Creatinine Ratio 10.5 (10-20) 04/16/22 Glu 100 mg/dl (70-99(Fasting)) H 04/16/22 Ca 9.2 mg/dl (8.5-10.1) 04/16/22 Total Bilirubin 1.2 mg/dl (0.2-1.0) H 04/16/22 AST 204 U/L (13-39) H 04/16/22 ALT 156 U/L (7-52) H 04/16/22 Alkaline Phosphatase 64 U/L (34-104) 04/16/22 TP 7.4 gm/dl (6.0-8.3) 04/16/22 Albumin 4.2 gm/dl (3.4-5.0) 04/16/22 Globulin 3.2 gm/dl (2.5-4.0) 04/16/22 Albumin/Globulin Ratio 1.3 (0.9-2) 04/16/22 Mg 1.8 mg/dl (1.7-2.4) 04/16/22 11:08 Calcium Level 9.2 mg/dl (8.5-10.1) 04/16/22 11:08 Prothromb Time International Ratio 1.0 (0.9-1.1) 04/16/22 11:0 8 I & O Totals 24 Hours 04/15/22 04/16/22 04/17/22 06:59 06:59 06:59 Intake Total 1250 / 1250 4163.333 / 4163.333 Balance 1250 / 1250 4163.333 / 4163.333 Cumulative 04/14/22 13:45 thru 04/16/22 06:59 Intake Total 5413.333 Balance 5413.333 RT Ventilator Mngmt (Last Documented) Ventilator Ordered Settings Respiratory Rate 18 04/16/22 08:08 Ventilator - PT Measurements Respiratory Rate 18 Coding Level of Care Code Critical Care 1st 30-74 mins Diagnoses Delirium tremens F10.931 Alcoholism F10.20 Anxiety and depression F41.9; F32.A Fatty liver K76.0
[2022-04-16] MEDS: PHENobarbitaL 30 MG TAB PO SCH (20:11)
[2022-04-16] MEDS: NICOTINE 14 MG/24 HR PATCH TD SCH (20:47)
[2022-04-17] MEDS ORDERED: GABAPENTIN 600 MG TAB PO SCH
[2022-04-17 06:19] LABS: BUN Creatinine Ratio 13.2 (10-20); Calcium 9.2 mg/dl (8.5-10.1); Creatinine Clr Calc Pharmacy 156.1 ml/min; Est GFR (African American) 147.5 ml/min; Est GFR (Non-African American) 127.3 ml/min; Potassium 3.5 mmol/L (3.5-5.1)
[2022-04-17 06:21] LABS: Basophils # (auto) 0.09 K/uL (0-0.2); Basophils % (auto) 1.7 %; Eosinophils # (auto) 0.15 K/uL (0-0.50); Eosinophils % (auto) 2.8 %; Hematocrit (blood only) 41.5 % (40.1-51.0); Hemoglobin 14.2 g/dl (14.0-18.0); Immature Granulocytes # (auto) 0.02 K/uL (0.00-0.02); Immature Granulocytes % (auto) 0.4 %; Lymphocytes # (auto) 0.77 K/uL (1.2-3.4); Lymphocytes % (auto) 14.3 %; Mean Corpuscular Hemoglobin 30.5 pg (25.0-34.0); Mean Corpuscular Hgb Conc 34.2 g/dL (32.0-36.0); Mean Corpuscular Volume 89.2 fL (80.0-100.0); Mean Platelet Volume 9.6 fL (9.4-12.4); Monocytes # (auto) 0.41 K/uL (0.24-0.82); Monocytes % (auto) 7.6 %; Neutrophils # (auto) 3.94 K/uL (1.4-6.5); Neutrophils % (auto) 73.2 %; Platelet Count 121 K/uL (130-400); Platelet Estimate Normal (Normal); RDW Coefficient of Variation 12.8 % (11.5-14.5); RDW Standard Deviation 41.6 fL (36.4-46.3); Red Blood Count 4.65 M/uL (4.63-6.08); White Blood Count 5.38 K/ul (4.8-10.8)
[2022-04-17 06:30] LABS: Albumin Globulin Ratio 1.4 (0.9-2); Albumin Level 4.4 gm/dl (3.4-5.0); Bilirubin,Total 1.2 mg/dl (0.2-1.0); Globulin 3.2 gm/dl (2.5-4.0); Phosphorus 4.6 mg/dl (2.5-4.9); Total Protein 7.6 gm/dl (6.0-8.3)
[2022-04-17] MEDS: THIAMINE HCL 100 MG TAB PO SCH (08:08)
[2022-04-17] MEDS: NICOTINE 14 MG/24 HR PATCH TD SCH (08:09)
[2022-04-17] MEDS: ENOXAPARIN INJ 30 MG/0.3 ML SYR SQ SCH (08:09)
[2022-04-17] MEDS: POTASSIUM CHLORIDE / WTR 10 MEQ/100 ML PLCT IV SCH ×3 (08:21→12:04)
[2022-04-17] MEDS: PHENobarbitaL 30 MG TAB PO SCH ×2 (08:25→20:53)
--- NOTE | 2022-04-17 08:59 | Billing Data ---
Date of Service April 17, 2022 Coding Level of Care Code 77727 Subseq Hosp Care Lvl 3
--- NOTE | 2022-04-17 08:59 | Critical Care Progress Note ---
Date of Service April 17, 2022 Assessment & Plan (1) Delirium tremens: Plan: Reason Critically Ill: 31-year-old male here with a PMHx significant for anxiety/depression, alcoholism, GERD who presented with alcohol intoxication and who was admitted for management of alcohol withdrawal, delirium tremens. Neuro -delirium tremens, depression and anxiety CAM ICU: POSITIVE Sedation: IV phenobarbital as needed. P.o. phenobarbital to start tomorrow Analgesia: Cardiac -Tachycardia: Secondary to withdrawal agitation. * Metoprolol 12.5 mg twice daily for symptomatic management. GI -Transaminitis: Suspect alcohol related. * Trend labs * Regular diet ENDO * ICU hyperglycemia protocol HEME * Mild, stable anemia * Lovenox 30 mg daily DVT prophylaxis Thank you for allowing us to be part of this patient's care. Please refer to Dr. Vasques's documentation for any further recommendations. (2) Alcohol withdrawal: (3) Anxiety and depression: (4) Alcoholism: (5) Fatty liver: (6) GERD (gastroesophageal reflux disease): Admission and Anticipated Discharge Date Admission Date: April 14, 2022 Supervising Physician Co-Signing Physician Notes Dr. Yee was resident physician during care of patient. I separately evaluated patient for emerson portions of the history and the exam. I was present during the critical portion of medical decision making, and I discussed the case with the resident. I generally agree with the findings and plan. Significant improvement in mentation and decrease in agitation. Continue with phenobarb taper. Adding metoprolol 12.5 mg twice daily for hyperadrenergic state. Stable for downgrade out of ICU. Subjective No acute events overnight. Patient is alert and oriented x4 today. He has no acute complaints. Stable for downgrade from ICU. Review of Systems Review of Systems: All systems reviewed & are unremarkable except as noted in HPI & below Physical Exam Physical Exam: General: No acute distress HEENT: PERRLA. Normal conjunctiva, anicteric sclera. Oropharynx normal. Respiratory: Normal respiratory effort, CTA BL. Cardiovascular: RRR without murmurs, gallops, or rubs. No edema. GI: Soft abdomen with normal bowel sounds heard on auscultation. Nontender x4 quadrants Neuro: Alert and oriented x3. Results & Data Results & Data ([facility]) Vital Signs (Past 12 Hours) Vital Signs Temp Pulse Pulse Resp BP BP Pulse Ox 04/17/22 07:16 37.3 C 120 H 18 101/87 95 04/17/22 01:00 96 H 0 L 95 04/17/22 01:00 128/81 04/17/22 00:00 98 H 0 L 93 04/17/22 00:00 101/70 04/16/22 23:00 87 0 L 95 04/16/22 23:00 106/65 04/16/22 22:28 68 11 L 95 04/16/22 22:28 100/60 04/16/22 22:00 122 H 20 97 04/17/22 00:00 36.8 C 04/16/22 23:36 92 H 04/16/22 21:00 75 12 96 04/16/22 21:00 105/63 04/16/22 20:13 79 15 97 04/16/22 20:13 131/94 04/16/22 20:01 79 0 L 97 04/16/22 20:00 113 H 0 L 99 04/16/22 20:00 36.8 C O2 Del Method 04/17/22 07:16 Room Air 04/17/22 01:00 04/17/22 01:00 04/17/22 00:00 04/17/22 00:00 04/16/22 23:00 04/16/22 23:00 04/16/22 22:28 04/16/22 22:28 04/16/22 22:00 04/17/22 00:00 04/16/22 23:36 04/16/22 21:00 04/16/22 21:00 04/16/22 20:13 04/16/22 20:13 04/16/22 20:01 04/16/22 20:00 04/16/22 20:00 Resident Activity Tracking Resident Involvement: Resident Care Provided Care Provided: Adult Hospital Medicine
[2022-04-17] MEDS: METOPROLOL TARTRATE 25 MG TAB PO SCH ×2 (10:02→20:53)
--- NOTE | 2022-04-17 14:27 | Hospitalist Progress Note ---
Date of Service April 17, 2022 Assessment & Plan (1) Alcohol withdrawal: Plan: Last intake was 1 pint of vodka on Thursday. Currently stable on a phenobarbital tapering dose. He is stable for transfer out of the ICU today. Paranoia and hallucinations have resolved (2) Alcoholism: Plan: Eventual outpatient therapy (3) Anxiety and depression: Plan: Continue Lexapro 10 mg daily. Stable (4) Fatty liver: Plan: Total bilirubin 1.6, AST/ALT improving. Normal PT. No role for steroids. Serial labs. (5) GERD (gastroesophageal reflux disease): Plan: Famotidine Plan DVT ppx: SCDs - Low DVT risk per admission calculator. Patient up and walking around room frequently. Disposition: Anticipate discharge to home tomorrow, April 18 Admission and Anticipated Discharge Date Admission Date: April 14, 2022 Subjective Alert and oriented. Friends were at the bedside. He has had no behavior issues last night or today. He is stable for transfer out of the ICU. Review of Systems Review of Systems: Constitutional-no fever or chills ENT-no blurred vision, no double vision, no epistaxis, no sore throat Respiratory-no cough, no wheezing, no shortness of breath Cardiac-no palpitations, no chest pain, no syncope GI-no nausea, vomiting, diarrhea, melena, hematochezia -no urinary retention, no urinary incontinence, no dysuria, no hematuria Musculoskeletal-no joint pain, no muscle tenderness Skin-no bruising, no rashes, no pruritus Neuro-no isolated weakness, no paresthesia, no weakness Psych-no depression, no anxiety Physical Exam Physical Exam: General-alert and oriented x3, no fevers, no chills HEENT-head atraumatic and normocephalic, pupils equal and reactive to light, extraocular muscles intact Neck-no lymphadenopathy or thyromegaly, trachea midline Chest-clear to auscultation percussion. No rales wheezing or rhonchi Cardiac-regular rate and rhythm, normal S1 and S2, no murmurs Abdomen-normal bowel sounds, nontender, no hepatosplenomegaly Extremities-no cyanosis, clubbing, or edema Neuro-cranial nerves II through XII intact, motor and sensory function within normal limits, strength symmetrical , no focal deficits Psych-normal affect, normal mood Results & Data Results & Data ([facility]) Vital Signs (Past 12 Hours) Vital Signs Temp Pulse Pulse Resp BP BP Pulse Ox 04/17/22 12:00 37.2 C 96 H 18 123/70 97 04/17/22 09:00 107 H 20 95 04/17/22 09:00 101/61 04/17/22 08:00 132 H 20 95 04/17/22 08:00 115/84 04/17/22 07:00 96 H 18 96 04/17/22 07:00 101/67 04/17/22 08:00 98 H 04/17/22 07:16 37.3 C 120 H 18 101/87 95 O2 Del Method 04/17/22 12:00 Room Air 04/17/22 09:00 04/17/22 09:00 04/17/22 08:00 04/17/22 08:00 04/17/22 07:00 04/17/22 07:00 04/17/22 08:00 04/17/22 07:16 Room Air Laboratory Results 04/17/22 05:31 04/17/22 05:31 PG Care Time/CCT Total # of Minutes Spent Total Time Spent with Patient: Total time spent is greater than 50% in coordination of care (as documented) at patient's floor/unit and/or counseling patient: Coding Level of Care Code 05106 Subseq Hosp Care Lvl 3 Diagnoses Alcohol withdrawal F10.939 Alcoholism F10.20 Anxiety and depression F41.9; F32.A Fatty liver K76.0 GERD (gastroesophageal reflux disease) K21.9
[2022-04-18] MEDS ORDERED: PHENobarbitaL 30 MG TAB PO SCH (09:00)
[2022-04-18] MEDS: ENOXAPARIN INJ 30 MG/0.3 ML SYR SQ SCH (09:00)
[2022-04-18] MEDS: THIAMINE HCL 100 MG TAB PO SCH (09:01)
[2022-04-18] MEDS: NICOTINE 14 MG/24 HR PATCH TD SCH (09:01)
[2022-04-18] MEDS: METOPROLOL TARTRATE 25 MG TAB PO SCH (09:01)
[2022-04-18 09:20] LABS: Albumin Level 4.2 gm/dl (3.4-5.0); Bilirubin Direct 0.3 mg/dl (0-0.2); Bilirubin,Total 0.8 mg/dl (0.2-1.0); Total Protein 7.4 gm/dl (6.0-8.3)
[2022-04-18] MEDS ORDERED: GABAPENTIN 600 MG TAB PO SCH (12:00)
--- NOTE | 2022-04-18 12:23 | Psychiatric Consultation ---
Date of Consultation April 18, 2022 Impression / Recommendations Impression 31 yo male with significant alcohol dependence, AMS from withdrawal delirium cleared, has benefitted from Lexapro in the past. (1) Alcohol use disorder: (2) Anxiety: Plan reinforced recommendation for inpatient rehab there is no indication for acute inpatient psychiatric admission and he is psychiatrically stable for appropriate rehab programming as his jaimes were solely in the context of withdrawal. can restart Lexapro 10 mg at the discretion of hospitalist given acute LFT elevations. Psych History Identifying Data 31 yo male from [place] admit medically 04/14/22 for [facility] detox, consultation by hospitalist service for anxiety. Chief Complaint "Yeah it's been wild, I'm never going through that again". History of Present Illness Initial consultation delayed as patient developed acute withdrawal delirium. As per initial review: Patient has some history of depression, has been non compliant with Lexapro on an outpatient basis. Drinking 1/2 or full fifth of vodka daily. Exhibiting some signs of withdrawal delirium overnight, such as restlessness, irritability, possible jaimes, perseverating on IV pump and then paranoia that he is being monitored through it. Is on AWSS protocol with Neurontin, now phenobarb. Recieved Ativan for scoring this am and then Zyrpexa IM soon after by hospitalist service. Per liaison interview last pm: He said he is feeling better since he initially came into the hospital for alcohol withdrawal. He says he wants to quit drinking. Viraj said prior to today, when he was here (on medical) he was very paranoid, having hallucinations, and making bizarre statements. He said that the last few days "have been sort of a blur." He does remember feeling like there were people hiding in the corner of the room and that the medical equipment was spying on him. Viraj said that today he is not hallucinating, but does have anxiety. Denies having any hallucinations at home. He states that his anxiety is an 8 out of 10 due dealing with his issues of alcoholism and being in the hospital. Generally his anxiety at home is a 6-6.5 out of 10. He was taking Lexapro for his anxiety prescribed by Dr. Reid (PCP). He was taking 5mg for approx. 3 months, recently increased to 10mg about 2 weeks ago and he stopped taking it for about 4 days before he came to [facility]. He has said that he has times where he has felt depressed at home but not to the point where he ever feels suicidal or that he would ever hurt himself (or anyone else). He feels there is nothing at home to harm himself and keeps all guns locked with a emerson. He states that his and older brother are his main supports. His family and kids are what he lives for (though never suicidal). No hx of SIB, violence. He has never seen a psychiatrist or therapist but feels that those both could be something that he could benefit from. He would like outpatient rehab when he leaves but says his would prefer inpatient for him. Liaison provided Viraj with purple resource book. He denies any hx of abuse or significant trauma. Viraj said the beginning of his alcoholism started in 2013 when he drank with his friends in their apartment. Then in 2015/2016 is when he moved back in with his parents and become dependent on alcohol and hid it from them. He says there are times were he would have blackouts from alcohol but usually could remember details from nights before. He would rarely drink in the morning. His stressors include his alcoholism and his work. Denies any legal issues due to his drinking (or in general). Denies any other substance abuse other than vaping and does not use drugs. Liaison said that if he needs anything, Liaison will be available. Today the patient states that he is still considering options with regards to rehab. He would like to restart Lexapro and reviewed that I'd defer to hospitalist given severity of LFT elevations. Allergies Allergy/AdvReac Type Severity Reaction Status Date / Time No Known Allergies Allergy Mild NONE Unverified 04/14/22 19:01 Home Medications Medication Instructions Recorded Confirmed Type escitalopram oxalate 10 mg tablet 10 mg PO DAILY #90 tabs 04/11/22 04/14/22 Rx (Lexapro) Personal History Beliefs That Will Affect Care: None Patient History Medical History Anxiety and depression Fatty liver GERD (gastroesophageal reflux disease) Surgical History H/O umbilical hernia repair S/P wisdom tooth extraction Family History Grandmother (Maternal) Diabetes Hypertension Father No problems noted. Mother No problems noted. Denies family history of Ovarian cancer Prostate cancer Myocardial infarction Breast cancer Colorectal cancer Social History Smoking Status: Never smoker Tobacco Type: E-cigarettes / Vaping Age Started Using Tobacco: 16; Second Hand Exposure: No; Hx Alcohol Use: Yes Alcohol type: hard liquor Alcohol Intake Frequency: 2-3 x/Week Alcohol Intake Frequency Comment: Weekends Hx Substance Use: No Preferred Language: Finnish Communication Ability: Effective Visual Impairment: Partially Limited Hearing Ability: Normal Senior Sous Chef Required: No Beliefs That Will Affect Care: None marital status: Current Living Situation: Spouse and Family Current Living Situation Comment: and 2 children current occupational status: employed current occupation: [employer]- Works third shift How many Children do You have: 2 Feels Safe at Home: Yes Childhood Exposure to Second-Hand Smoke: Yes Diet Comment: does not follow a diet Dental Care, Regularly: Yes Physical Activity Frequency: 1-2 Times per Week Physical Activity Frequency Comment: Walks at work; walks at home during the summer Seatbelt Use: always Sunscreen Use: Yes Assistive Devices: None Physical Exam Psychiatric: Orientation: alert and oriented x 3 Apperance: appropriately dressed and appropriately groomed Eye Contact: good eye contact Motor Behavior: no abnormal motor movements Speech: normal rate/rhythm/volume of speech Affect: euthymic affect Mood: no depressed mood Thought Process: goal directed thought process Thought Content: reality based without delusions Suicidal Thoughts: denies suicidal thoughts Homicidal Thoughts: denies homicidal thoughts Hallucinations: no auditory hallucinations and no visual hallucinations Cognition: attention grossly intact and language grossly intact Estimated Intelligence: consistent with education level Insight: + limited insight Judgement: + limited judgement Vital Signs (Past 24 Hours): Last Vital Signs Temp 36.9 C 04/18/22 12:06 Pulse 82 04/18/22 12:06 Resp 18 04/18/22 12:06 BP 150/89 H 04/18/22 12:06 Pulse Ox 100 04/18/22 12:06 O2 Del Method 04/18/22 12:06 O2 Flow Rate 2 10/26/22 10:00 Review of Systems All systems reviewed & are unremarkable except as noted in HPI & below Results & Data ([facility]) Laboratory Results 04/18/22 04/18/22 Range/Units 07:22 07:22 Phosphorus 4.0 (2.5-4.9) mg/dl Total Bilirubin 0.8 (0.2-1.0) mg/dl Direct Bilirubin 0.3 H (0-0.2) mg/dl AST 257 H (13-39) U/L ALT 306 H (7-52) U/L Alkaline Phosphatase 77 (34-104) U/L Total Protein 7.4 (6.0-8.3) gm/dl Albumin 4.2 (3.4-5.0) gm/dl Medications Administered Enoxaparin Sodium (Enoxaparin Inj 30 Mg/0.3 Ml Syr) 30 mg SQ QAM PETRONA Stop: 05/17/22 08:59 Last Admin: 04/18/22 09:00 Dose: 30 mg Documented By: Admin: 04/17/22 08:09 Dose: 30 mg Documented By: GPF Metoprolol Tartrate (Metoprolol Tartrate 25 Mg Tab) 12.5 mg PO BID PETRONA Stop: 05/17/22 09:14 Last Admin: 04/18/22 09:01 Dose: 12.5 mg Documented By: Admin: 04/17/22 20:53 Dose: 12.5 mg Documented By: Admin: 04/17/22 10:02 Dose: 12.5 mg Documented By: GPF Miscellaneous (Remove Nicoderm Patch) 1 each N/A DAILY@[id number] [facility] Stop: 05/17/22 08:58 Last Admin: 04/18/22 09:00 Dose: Not Given Documented By: Admin: 04/17/22 08:09 Dose: 1 each Documented By: GPF Nicotine (Nicotine 14 Mg/24 Hr Patch) 14 mg TD QAM PETRONA Stop: 05/16/22 19:44 Last Admin: 04/18/22 09:01 Dose: 14 mg Documented By: Admin: 04/17/22 08:09 Dose: 14 mg Documented By: Admin: 04/16/22 20:47 Dose: 14 mg Documented By: VK Phenobarbital (Phenobarbital 30 Mg Tab) 30 mg PO BID PETRONA Stop: 04/19/22 09:01 Last Admin: 04/18/22 09:05 Dose: 30 mg Documented By: BELLA Phenobarbital Sodium (Phenobarbital Sodium 130 Mg/Ml Vial) 65 mg IV Q6 PRN PRN Reason: see dosing instructions Stop: 05/16/22 16:10 Last Admin: 04/16/22 17:35 Dose: 65 mg Documented By: NOELLE Thiamine HCl (Thiamine Hcl 100 Mg Tab) 100 mg PO QAM [facility] Stop: 05/14/22 22:05 Last Admin: 04/18/22 09:01 Dose: 100 mg Documented By: Admin: 04/17/22 08:08 Dose: 100 mg Documented By: Admin: 04/16/22 08:11 Dose: Not Given Documented By: Admin: 04/15/22 08:31 Dose: 100 mg Documented By: PER Co-signed By: PIETER Admin: 04/14/22 22:30 Dose: 100 mg Documented By: MAXIMILIAN Coding Level of Care Code 50242 [facility] Intl Hosp Care Lvl 2 Diagnoses Alcohol use disorder Anxiety F41.9
--- NOTE | 2022-04-18 12:41 | Discharge Summary ---
Date of Service April 18, 2022 Admission HPI Per Admitting Provider The patient is a 31-year-old male with a past medical history of alcoholism, anxiety and depression, fatty liver, and GERD.He presents to the emergency department with his present, with concerns regarding alcohol withdrawal.He has been without his Lexapro 10 mg daily prescription for a few weeks, but does report having picked the prescription up yesterday, and is ready to start it again. Principal Diagnosis Acute alcohol intoxication, alcohol induced hepatitis, alcohol withdrawal with delirium Discharge Exam General-alert and oriented x3, no fevers, no chills HEENT-head atraumatic and normocephalic, pupils equal and reactive to light, extraocular muscles intact Neck-no lymphadenopathy or thyromegaly, trachea midline Chest-clear to auscultation percussion. No rales wheezing or rhonchi Cardiac-regular rate and rhythm, normal S1 and S2, no murmurs Abdomen-normal bowel sounds, nontender, no hepatosplenomegaly Extremities-no cyanosis, clubbing, or edema Neuro-cranial nerves II through XII intact, motor and sensory function within normal limits, strength symmetrical , no focal deficits Psych-normal affect, normal mood Discharge Data Allergies Allergy/AdvReac Type Severity Reaction Status Date / Time No Known Allergies Allergy Mild NONE Unverified 04/14/22 19:01 Consultations 04/14/22 19:00 ED Decision to Admit Stat 04/16/22 06:44 Consult Psychiatry Routine 04/16/22 14:02 Consult Coating Technician Routine Hospital Course (1) Alcohol withdrawal: Last intake was 1 pint of vodka on Thursday. Currently stable on a phenobarbital tapering dose. He will continue with a short course of phenobarbital taper at discharge . Paranoia and hallucinations have resolved (2) Alcoholism: Eventual outpatient therapy (3) Anxiety and depression: Continue Lexapro 10 mg daily. Stable (4) Fatty liver: Total bilirubin 1.6, AST/ALT improving. Normal PT. No role for steroids. Serial labs. (5) GERD (gastroesophageal reflux disease): Famotidine (6) Alcoholic hepatitis: Mildly elevated liver enzymes on admission are now decreasing and will eventually normalize. No steroid therapy indicated Plan DVT ppx: SCDs - Low DVT risk per admission calculator. Patient up and walking around room frequently. Disposition: discharge to home todayApril 18 Total Time Total Time Spent Total Time Spent (In Minutes): 35 minutes Discharge Plan Discharge Items Patient Disposition: Home - Self-Care Reason For Visit: ALCOHOL WITHDRAWAL Discharge Diagnosis: Acute alcohol intoxication, alcohol withdrawal with delirium, acute alcohol induced hepatitis Activity: Resume your previous activity Non-emergency contact: Primary Care Provider Call non-emergency contact if: you have any medication questions Follow-up/Referrals: Margaret Reid, [Primary Care Provider] - Diet: Regular Addtl Attending Provider Instructions: May resume Lexapro in 1 week. Discuss outpatient alcohol rehab with primary care provider Pending Studies at Discharge: No Stand-Alone Forms: My [place], Smoking Cessation Medications and DC Order Prescriptions: New phenobarbital 15 mg tablet See Rx Instructions .ROUTE .COMPLEX Qty: 14 0RF Rx Instructions: Take 2 tablets twice a day for 2 days then 1 tablet twice a day for 2 days then 1 tablet once a day for 2 days then stop Continued escitalopram oxalate [Lexapro] 10 mg tablet 10 mg PO DAILY Qty: 90 3RF Discharge Orders: Discharge Order (Routine); Ordered 04/18/22 Ordered By: Teodoro Wright Admission Data Admit Date/Time: 04/14/22 20:15 Attending Provider: Teodoro Wright Admit Provider: Cheikh Alvarenga Primary Care Provider: Margaret Reid Other Providers: Cheikh Alvarenga ; Jodie Pickard ; Nicolasa Patrick ; Dayan Wright ; Riky Vasques Coding Level of Care Code D/C DAY MANAGEMENT >30 MINS Diagnoses Alcohol withdrawal F10.939 Alcoholism F10.20 Anxiety and depression F41.9; F32.A Fatty liver K76.0 GERD (gastroesophageal reflux disease) K21.9 Alcoholic hepatitis K70.10
[2022-04-18 15:31] LABS: HBSAG NON-REACTIVE (NON-REACTIVE); Hepatitis A Antibody IgM NON-REACTIVE (NON-REACTIVE); Hepatitis B Core Antibody IgM NON-REACTIVE (NON-REACTIVE)
== END 2022-04-18 13:22 | disposition home or self-care (01) | DRG 897 ==
LOC: ED 13:45 → SUATTDRO 20:15 → 2E 20:15 → 1E 04-16 09:43 → 2S 04-17 14:16